=== PATIENT | female | born 1950 | race Caucasian/White ===

== ENCOUNTER 2016-11-17 16:50 | Inpatient (IN) | payer MEDICARE ==
[~2016-11-17] VITALS: Ht 165.1 cm; Wt 85.0 kg
[2016-11-19] MEDS ORDERED: VENTAER INH (10:50)
[2016-11-19] MEDS ORDERED: AMLO10TA2 PO (11:00)
[2016-11-19] MEDS ORDERED: LOSA50TA PO (11:01)
[2016-11-19] MEDS ORDERED: COUM5TAB PO (11:03)
[2016-11-19] MEDS ORDERED: TRAM50TA PO (11:03)
[2016-11-19] MEDS ORDERED: WARF-18 PO (11:03)
[2016-11-19] MEDS ORDERED: BENA25CA4 PO (11:06)
[2016-11-19] MEDS ORDERED: BIOTCAP PO (11:07)
[2016-11-26] MEDS ORDERED: PROPOFOL 200 MG/20 ML AMP IV ONE (10:08)
[2016-11-26] MEDS ORDERED: LACTATED RINGER'S 1000 ML INJ 1,000 ML IV ONE (10:08)
[2016-11-26] MEDS ORDERED: ONDANSETRON HCL 4 MG/2 ML VIAL IV PUSH ONE (10:08)
[2016-11-26] MEDS ORDERED: NORMOSOL R INJ 1,000 ML IV ONE (10:09)
[2016-11-26 12:09] VITALS: BP 136/80; PULSE 80; RESP 20; TEMP 97.9; O2SAT 96
[2016-11-26] MEDS ORDERED: ALVIMOPAN 12 MG CAPSULE ONE (12:19)
[2016-11-26] MEDS ORDERED: ceFAZolin INJ 1,000 MG VIAL ONE (12:19)
[2016-11-26] MEDS ORDERED: metroNIDAZOLE 500 MG INJ 100 ML IV ONE (12:20)
[2016-11-26] MEDS ORDERED: SODIUM CHLORIDE 0.9% INJ 100 ML ONE (12:20)
[2016-11-26 12:35] LABS: PROTHROMBIN TIME - PATIENT 11.1 SEC (9.8-11.6)
[2016-11-26] MEDS ORDERED: POVIDONE IODINE 5% (ANTISEPSIS KIT) 4 APPLICATIONS EACH NARE PRN (12:45)
[2016-11-26] MEDS ORDERED: LACTATED RINGER'S 1000 ML IV PRN (12:45)
[2016-11-26] MEDS ORDERED: DEXT 5%-NACL 0.9% 1000 ML INJ 1,000 ML IV SCH (12:45)
[2016-11-26] MEDS ORDERED: CHLORHEXIDINE GLUCONATE 2 % 1 PACK (2 CLOTHS) TOPICAL PRN (12:45)
[2016-11-26] MEDS ORDERED: ceFAZolin 1,000 MG/NS 100 ML IV SCH ×2 (12:45)
[2016-11-26] MEDS ORDERED: SODIUM CHLORID 0.9% 500 ML IV PRN (12:45)
[2016-11-26] MEDS ORDERED: ALVIMOPAN 12 MG CAPSULE - On Call PO SCH (12:45)
[2016-11-26] MEDS ORDERED: INSULIN HUMAN REGULAR 1,000 UNITS/10 ML VIAL SQ PRN (12:45)
[2016-11-26] MEDS ORDERED: METOPROLOL TARTRATE 25 MG TAB PO PRN (12:45)
[2016-11-26] MEDS ORDERED: METRONIDAZOLE 500 MG/100 ML ISONTONIC SOLN IV SCH (13:00)
[2016-11-26] MEDS ORDERED: FAMOTIDINE 20 MG/2 ML VIAL ONE (13:09)
[2016-11-26] MEDS ORDERED: DEXAMETHASONE SOD PHOS 4 MG/ML VIAL ONE (13:09)
[2016-11-26] MEDS ORDERED: ACETAMINOPHEN 1000 MG/100 ML VIAL IV ONE (13:09)
[2016-11-26] MEDS ORDERED: APREPITANT 40 MG CAP ONE (13:18)
[2016-11-26] MEDS ORDERED: SUGAMMADEX SODIUM 200 MG/2 ML VIAL IV PUSH ONE ×2 (16:02)
[2016-11-26] MEDS ORDERED: Post-op Orders (for Pharmacy) MISC XX ONE (16:30)
[2016-11-26] MEDS ORDERED: NALOXONE HCL 0.4 MG/ML AMP IV PRN (16:30)
[2016-11-26] MEDS ORDERED: SODIUM CHLORIDE 0.9% FLUSH 10 ML FLUSH IV FLUSH PRN (16:30)
[2016-11-26] MEDS ORDERED: ACETAMINOPHEN/HYDROcodone 325 MG/5 MG TAB PO PRN (16:30)
[2016-11-26] MEDS ORDERED: POTASSIUM CHLOR 20 MEQ PREMIX 100 ML IV PRN (16:30)
[2016-11-26] MEDS ORDERED: POTASSIUM CHLOR 40 MEQ PREMIX 100 ML IV PRN (16:30)
[2016-11-26] MEDS ORDERED: ZOLPIDEM TARTRATE 5 MG TAB PO PRN (16:30)
[2016-11-26] MEDS ORDERED: ENALAPRILAT 1.25 MG/ML VIAL IV PRN (16:30)
[2016-11-26] MEDS ORDERED: BENZOCAINE 6 MG/MENTHOL 10 MG LOZENGE BUCCAL PRN (16:30)
[2016-11-26] MEDS ORDERED: ONDANSETRON HCL 4 MG/2 ML VIAL IV PRN (16:30)
[2016-11-26] MEDS ORDERED: DO NOT ADM ANY ANTICOAGULANT DRUGS PRN (16:40)
[2016-11-26] MEDS ORDERED: ALBUTEROL SULFATE 90 MCG/ACT HFA 18 GM INHALER INH PRN (16:45)
[2016-11-26] MEDS ORDERED: *morphine SULFATE 8 MG/ML PERIprocedure ONLY ONE ×3 (16:45→17:25)
[2016-11-26] MEDS ORDERED: fentaNYL CITRATE 250 MCG/5 ML AMP ONE (16:47)
[2016-11-26] MEDS ORDERED: MIDAZOLAM HCL 2 MG/2 ML VIAL ONE (16:47)
[2016-11-26 17:04] LABS: AUTOMATED NEUTROPHIL # 8.6 TH/MM3 (1.8-7.7); BASOPHIL # 0.1 TH/MM3 (0-0.2); BASOPHIL % 0.6 % (0.0-2.0); EOSINOPHIL % 0.2 % (0.0-4.0); HEMATOCRIT 41.6 % (35.0-46.0); HEMO FLAGS DIFF FINAL; LYMPH % 3.1 % (9.0-44.0); LYMPHOCYTE # 0.3 TH/MM3 (1.0-4.8); MEAN CELL VOLUME 89.1 FL (80.0-100.0); MEAN CORPUSCULAR HEMOGLOBIN 30.6 PG (27.0-34.0); MEAN CORPUSCULAR HGB CONC 34.3 % (32.0-36.0); MONO % 2.4 % (0.0-8.0); NEUT % 93.7 % (16.0-70.0); PLATELET COUNT 165 TH/MM3 (150-450); RED BLOOD COUNT 4.68 MIL/MM3 (4.00-5.30); RED CELL DISTRIBUTION WIDTH 13.2 % (11.6-17.2); WHITE BLOOD COUNT 9.1 TH/MM3 (4.0-11.0)
[2016-11-26 17:21] LABS: POTASSIUM 3.9 MEQ/L (3.5-5.1)
[2016-11-26] MEDS: ceFAZolin 2 GM PREMIX 50 ML IV SCH (17:50)
[2016-11-26] MEDS: METOCLOPRAMIDE HCL 10 MG/2 ML VIAL IVS SCH (17:50)
[2016-11-26] MEDS ORDERED: *HYDROmorphone PF 1 MG VIAL PERIprocedural Use ONLY ONE (18:31)
[2016-11-26] MEDS: D5-LR + KCL 20 MEQ INJ 1,000 ML IV SCH ×2 (18:35→22:01)
[2016-11-26] MEDS: MORPHINE SULFATE 30 MG/30 ML PCA IV SCH (18:36)
[2016-11-26] MEDS: metroNIDAZOLE 500 MG INJ 100 ML IV SCH (19:19)
[2016-11-26 20:20] VITALS: BP 123/73; PULSE 76; RESP 20; TEMP 98.2
[2016-11-26 20:24] VITALS: PULSE 62
[2016-11-26 21:00] VITALS: PULSE 70
[2016-11-26] MEDS: FUROSEMIDE 20 MG/2 ML VIAL IV SCH (21:56)
[2016-11-26] MEDS: SODIUM CHLORIDE 0.9% FLUSH 10 ML FLUSH IV FLUSH SCH (21:56)
[2016-11-26 22:00] VITALS: PULSE 70
[2016-11-26] MEDS: PCA - TOTAL MG MORPHINE DELIVERED PER SHIFT SCH (22:00)
[2016-11-26 23:00] VITALS: PULSE 76
[2016-11-27] VITALS (26 sets, daily range): BP systolic 107–145; BP diastolic 57–70; PULSE 20–92; RESP 16–20; TEMP 97.6–98.8; O2SAT 92–99
[2016-11-27] MEDS: D5-LR + KCL 20 MEQ INJ 1,000 ML IV SCH ×2 (00:22→20:57)
[2016-11-27] MEDS: METOCLOPRAMIDE HCL 10 MG/2 ML VIAL IVS SCH ×4 (00:34→18:03)
[2016-11-27] MEDS: ceFAZolin 2 GM PREMIX 50 ML IV SCH ×2 (00:35→10:08)
[2016-11-27] MEDS: metroNIDAZOLE 500 MG INJ 100 ML IV SCH ×2 (04:02→11:05)
[2016-11-27] MEDS: PCA - TOTAL MG MORPHINE DELIVERED PER SHIFT SCH ×3 (05:15→22:00)
[2016-11-27 05:24] LABS: AUTOMATED NEUTROPHIL # 7.6 TH/MM3 (1.8-7.7); BASOPHIL % 0.2 % (0.0-2.0); HEMATOCRIT 41.5 % (35.0-46.0); HEMO FLAGS DIFF FINAL; LYMPH % 3.4 % (9.0-44.0); LYMPHOCYTE # 0.3 TH/MM3 (1.0-4.8); MEAN CELL VOLUME 88.9 FL (80.0-100.0); MEAN CORPUSCULAR HEMOGLOBIN 30.6 PG (27.0-34.0); MEAN CORPUSCULAR HGB CONC 34.4 % (32.0-36.0); MONO % 9.7 % (0.0-8.0); NEUT % 86.7 % (16.0-70.0); PLATELET COUNT 171 TH/MM3 (150-450); RED BLOOD COUNT 4.66 MIL/MM3 (4.00-5.30); RED CELL DISTRIBUTION WIDTH 13.2 % (11.6-17.2); WHITE BLOOD COUNT 8.8 TH/MM3 (4.0-11.0)
[2016-11-27 05:56] LABS: BICARBONATE 29.1 MEQ/L (21.0-32.0); POTASSIUM 4.7 MEQ/L (3.5-5.1)
[2016-11-27] MEDS: SODIUM CHLORIDE 0.9% FLUSH 10 ML FLUSH IV FLUSH SCH ×2 (07:59→21:01)
[2016-11-27] MEDS: FUROSEMIDE 20 MG/2 ML VIAL IV SCH ×2 (07:59→21:01)
[2016-11-27] MEDS: PANTOPRAZOLE SODIUM 40 MG VIAL IVP SCH (07:59)
[2016-11-27] MEDS: LOSARTAN 50 MG TAB PO SCH (08:00)
[2016-11-27] MEDS: ALVIMOPAN 12 MG CAPSULE PO SCH ×2 (08:00→20:58)
[2016-11-27] MEDS ORDERED: ALVIMOPAN 12 MG CAPSULE - Post-op dosing PO SCH (09:00)
[2016-11-27] MEDS: KETOROLAC TROMETHAMINE 30 MG/ML (IVP) VIAL IVP PRN ×2 (12:38→21:17)
[2016-11-27] MEDS: MORPHINE SULFATE 30 MG/30 ML PCA IV SCH (14:44)
--- NOTE | 2016-11-27 16:56 | HHI.PR ---
Subjective Remarks No complaints. Some pain. Objective Vital Signs Date Time Temp Pulse Resp B/P Pulse Ox O2 Delivery O2 Flow Rate FiO2 11/27/16 14:44 16 11/27/16 14:28 16 11/27/16 14:00 16 11/27/16 12:00 98.8 82 18 123/70 93 11/27/16 08:10 99 21 11/27/16 08:00 98.7 76 18 128/67 94 11/27/16 06:00 92 11/27/16 05:15 20 11/27/16 05:00 80 11/27/16 04:00 72 11/27/16 04:00 98.2 77 18 107/69 99 11/27/16 03:00 74 11/27/16 02:39 95 Nasal Cannula 3.00 11/27/16 02:00 70 11/27/16 01:00 74 11/27/16 00:00 97.6 20 20 145/65 96 11/27/16 00:00 70 11/26/16 23:00 76 11/26/16 22:00 70 11/26/16 22:00 20 11/26/16 21:00 70 11/26/16 20:24 62 11/26/16 20:20 98.2 76 20 123/73 11/26/16 19:00 68 16 120/69 99 Nasal Cannula 2 11/26/16 18:36 16 11/26/16 18:30 70 16 136/85 99 Nasal Cannula 2 11/26/16 18:00 70 16 135/79 99 Nasal Cannula 2 11/26/16 17:45 66 16 123/67 99 Nasal Cannula 2 11/26/16 17:30 62 16 128/73 99 Nasal Cannula 2 11/26/16 17:15 66 16 117/66 99 Nasal Cannula 2 11/26/16 17:00 64 16 117/62 99 Nasal Cannula 2 I/O 11/26/16 11/26/16 11/26/16 11/27/16 11/27/16 11/27/16 07:00 15:00 23:00 07:00 15:00 23:00 Intake Total 200 ml 2377 ml Output Total 340 ml 2290 ml Balance -140 ml 87 ml Intake Oral 240 ml IV Total 200 ml 2137 ml Output Urine Total 250 ml 2150 ml Drainage Total 90 ml 140 ml Result Diagram: 11/27/16 0455 11/27/16 0455 Objective Remarks VS-S Abd: obese. Raghu has hole cut and has pulled off colostomy appliance. I&Os-OK Labs-OK Assessment and Plan Assessment and Plan Stable POD#1 Transfer New Raghu with no hole New Colostomy appliance Remove dressings tomorrow FLD tomorrow Juan Alberto Marquez MD Nov 27, 2016 16:56
[2016-11-28] VITALS (8 sets, daily range): BP systolic 108–136; BP diastolic 60–85; PULSE 70–87; RESP 16–19; TEMP 96.8–98.4; O2SAT 90–97
[2016-11-28] MEDS: METOCLOPRAMIDE HCL 10 MG/2 ML VIAL IVS SCH ×5 (00:42→23:35)
[2016-11-28] MEDS: D5-LR + KCL 20 MEQ INJ 1,000 ML IV SCH ×2 (03:40→15:12)
[2016-11-28] MEDS: KETOROLAC TROMETHAMINE 30 MG/ML (IVP) VIAL IVP PRN ×2 (03:41→15:12)
[2016-11-28] MEDS: PCA - TOTAL MG MORPHINE DELIVERED PER SHIFT SCH ×2 (05:15→22:00)
[2016-11-28 09:08] LABS: AUTOMATED NEUTROPHIL # 7.1 TH/MM3 (1.8-7.7); BASOPHIL % 0.4 % (0.0-2.0); EOSINOPHIL # 0.1 TH/MM3 (0-0.4); EOSINOPHIL % 0.8 % (0.0-4.0); HEMATOCRIT 35.6 % (35.0-46.0); HEMO FLAGS DIFF FINAL; LYMPH % 5.2 % (9.0-44.0); LYMPHOCYTE # 0.4 TH/MM3 (1.0-4.8); MEAN CELL VOLUME 88.3 FL (80.0-100.0); MEAN CORPUSCULAR HGB CONC 35.2 % (32.0-36.0); MONO % 7.4 % (0.0-8.0); NEUT % 86.2 % (16.0-70.0); PLATELET COUNT 138 TH/MM3 (150-450); RED BLOOD COUNT 4.04 MIL/MM3 (4.00-5.30); RED CELL DISTRIBUTION WIDTH 13.4 % (11.6-17.2); WHITE BLOOD COUNT 8.2 TH/MM3 (4.0-11.0)
[2016-11-28 09:20] LABS: BICARBONATE 30.1 MEQ/L (21.0-32.0); POTASSIUM 4.1 MEQ/L (3.5-5.1)
[2016-11-28] MEDS: PANTOPRAZOLE SODIUM 40 MG VIAL IVP SCH (10:26)
[2016-11-28] MEDS: SODIUM CHLORIDE 0.9% FLUSH 10 ML FLUSH IV FLUSH SCH ×2 (10:27→20:25)
[2016-11-28] MEDS: LOSARTAN 50 MG TAB PO SCH (10:27)
[2016-11-28] MEDS: ALVIMOPAN 12 MG CAPSULE PO SCH ×2 (10:27→20:27)
[2016-11-28] MEDS: FUROSEMIDE 20 MG/2 ML VIAL IV SCH ×2 (10:27→20:27)
--- NOTE | 2016-11-28 17:20 | MP ---
cc: BRIANA MARQUEZ M.D. DATE OF SURGERY: 11/28/2016. PREOPERATIVE DIAGNOSIS: Low rectal cancer status post adjuvant radiation therapy and chemotherapy. POSTOPERATIVE DIAGNOSIS: Low rectal cancer status post adjuvant radiation therapy and chemotherapy. OPERATIVE PROCEDURE PERFORMED: Abdominal perineal resection with permanent colostomy. ANESTHESIA: General endotracheal anesthesia. SURGEON: Briana Marquez M.D. SURGICAL GARMENT ASSEMBLER: Shiva Mckenzie MD. ESTIMATED BLOOD LOSS: 200 cc. OPERATIVE FINDINGS: This patient was referred to sd with a very low rectal cancer abutting the dentate line. She underwent preoperative radiation therapy and chemotherapy and developed an ulceration at the base of the carcinoma. This ulceration was biopsied the biopsy was benign but she continued to have severe pain in the anal area. She is about 4+ months after radiation therapy and chemotherapy and there continues to be an ulceration present at the site of the lesion. For this reason, abdominal perineal resection was recommended. The patient may not have any residual carcinoma, but she continues to have pain from the nonhealing radiation ulcer and I advised abdominal perineal resection. At surgery, exploration of the abdominal cavity reveals that the liver was palpably normal as was the remainder of the colon and the small bowel. The uterus and ovaries and tubes were all intact and normal palpably. A rectosigmoid resection was done with an end colostomy in the left middle quadrant and perineal resection was done fully closing the perineum. Mobilization of the splenic flexure was done to facilitate obtaining an omental flap, which was placed in the pelvis. DESCRIPTION OF THE PROCEDURE IN DETAIL / OPERATIVE TECHNIQUE: The patient was placed on the table in supine position after adequate general endotracheal anesthesia. The legs were placed in the perineal lithotomy position and the abdomen and perineum and vagina were prepped and draped in the usual manner. A transverse infraumbilical skin incision was made and carried down through subcutaneous tissue and the rectus muscles and the peritoneum was entered with the above-mentioned findings. Our attention was turned to the sigmoid colon, which was mobilized along its peritoneal reflection. The left ureter was identified and protected at all times. Next the descending colon was mobilized along its peritoneal reflection up to the splenic flexure. Eventually the splenic flexure was mobilized and the omentum was mobilized from the transverse colon and lesser sac was entered. The superior hemorrhoidal vessels were doubly clamped, cut and doubly ligated with #0 Vicryl ligatures and the retrorectal space was entered and the lateral pelvic peritoneum was incised bilaterally and the dissection was taken down posteriorly and laterally. Eventually the dissection was taken around anteriorly and the cul-de-sac was entered posterior to the vagina and the dissection was taken down the rectum to the pelvic floor muscles. Once this was accomplished, Dr. Mckenzie went below and made an elliptical incision around the anus up into the ischiorectal fossa and then incised the levator muscles widely and entered the pelvis posteriorly and carried the dissection around laterally around the levators. The anterior area was dissected free and the sigmoid colon was divided with an Ethicon ZULEIMA 55 stapling device and the remainder of the sigmoid mesentery was clamped, cut and ligated and the specimen was passed out from above downward to the perineum. Dr. Mckenzie then closed the perineum with interrupted #0 Vicryl sutures for the subcutaneous tissue and then the skin was closed with simple running #2-0 subcuticular Vicryl sutures. The pelvis had been previously irrigated with saline solution and hemostasis at the previously obtained by Dr. Mckenzie. There was a large redundant and remaining loop of sigmoid colon which was divided with the ZULEIMA stapling device and the remainder of that mesentery was clamped, cut and ligated and that specimen was also removed. The end of the colon was then cleared of a generous amount of appendiceal epiploica and fatty tissue and a stoma site was made in the left middle quadrant in the midportion of the rectus muscle by taking out a disk of skin and subcutaneous tissue incising the anterior rectus sheath longitudinally, splitting the muscle and then incising the posterior rectus sheath as well. The colon was brought out through the stoma site easily. The omentum which had been previously mobilized was taken down the left colic gutter and placed in the pelvis posterior to the uterus and the uterus was allowed to fall back and totally obliterate the pelvis. A drain was placed in the pelvis and brought out through a separate stab wound in the right lower quadrant. The abdominal cavity was checked for hemostasis and hemostasis was obtained with electrocautery and ligature and the abdominal cavity was irrigated thoroughly with a couple of liters of saline solution and aspirated dry. The bowels were replaced in the abdominal cavity in an business process manager manner and then the abdominal cavity was closed in layers using a double-stranded #1 PDS for the posterior rectus sheath, irrigating the rectus muscle layer with a liter of saline solution and aspirating dry and then closing the anterior rectus sheath with a double-stranded #1 PDS as well. The subcutaneous tissue was irrigated thoroughly with saline solution using a liter. The subcutaneous tissue was aspirated dry and then the skin was closed with running 3-0 Vicryl subcuticular suture and dressings were applied. The colostomy was matured with interrupted 3-0 Vicryl sutures and a 57-mm appliance was placed. Sponge, needle instrument counts were reported as correct. The estimated blood loss was 200 mL. The patient tolerated the procedure well and left the operating room in good condition. MD ESPERANZA Sheridan/COCO /9:18 PM /5:08 PM
[2016-11-28] MEDS: MORPHINE SULFATE 30 MG/30 ML PCA IV SCH (18:54)
[2016-11-29] VITALS (7 sets, daily range): BP systolic 107–134; BP diastolic 63–78; PULSE 72–80; RESP 16–17; TEMP 96.2–97.8; O2SAT 93–98
[2016-11-29] MEDS: METOCLOPRAMIDE HCL 10 MG/2 ML VIAL IVS SCH ×4 (05:28→23:06)
[2016-11-29] MEDS: D5-LR + KCL 20 MEQ INJ 1,000 ML IV SCH ×2 (05:28→16:04)
[2016-11-29] MEDS: PCA - TOTAL MG MORPHINE DELIVERED PER SHIFT SCH ×3 (06:00→22:00)
[2016-11-29] MEDS: KETOROLAC TROMETHAMINE 30 MG/ML (IVP) VIAL IVP PRN ×3 (08:33→16:04)
[2016-11-29] MEDS: ALVIMOPAN 12 MG CAPSULE PO SCH ×2 (08:34→19:41)
[2016-11-29] MEDS: PANTOPRAZOLE SODIUM 40 MG VIAL IVP SCH (08:34)
[2016-11-29] MEDS: FUROSEMIDE 20 MG/2 ML VIAL IV SCH (08:34)
[2016-11-29] MEDS: LOSARTAN 50 MG TAB PO SCH (08:34)
[2016-11-29] MEDS: SODIUM CHLORIDE 0.9% FLUSH 10 ML FLUSH IV FLUSH SCH ×2 (09:00→19:39)
--- NOTE | 2016-11-29 10:20 | RADRPT ---
EXAM DATE/TIME: 11/29/2016 09:57 [facility] COMPARISON: No previous studies available for comparison. INDICATIONS : Evaluate for ileus, post operative MEDICAL HISTORY : None. SURGICAL HISTORY : abdominal ENCOUNTER: Initial ACUITY: 1 day PAIN SCORE: 8/10 LOCATION: Bilateral abdomen FINDINGS: There are slightly distended loops of small bowel with maximum diameter of 3.9 cm with gas present th roughout the colon down to the rectum. There is evidence for prior cholecystectomy. There appears to be a YOHANNES bulb overlapping the lower pelvis. No definite free air is identified for technique. CONCLUSION: Probable ileus. Nica Suarez MD on November 29, 2016 at 10:18 Board Certified Radiologist. This report was verified electronically.
[2016-11-30] MEDS: D5-LR + KCL 20 MEQ INJ 1,000 ML IV SCH ×2 (04:06→20:44)
[2016-11-30 04:13] VITALS: BP 126/63; PULSE 64; RESP 17; TEMP 97.8; O2SAT 92
[2016-11-30] MEDS: METOCLOPRAMIDE HCL 10 MG/2 ML VIAL IVS SCH ×3 (05:59→18:07)
[2016-11-30] MEDS: PCA - TOTAL MG MORPHINE DELIVERED PER SHIFT SCH (06:00)
[2016-11-30] MEDS: MORPHINE SULFATE 30 MG/30 ML PCA IV SCH (06:42)
--- NOTE | 2016-11-30 07:33 | HHI.PR ---
Subjective Remarks No N or V. Minimal N/G output. 150cc on insertion. Mainly c/o back pain. Incision not really painful. Stooling Objective Vital Signs Date Time Temp Pulse Resp B/P Pulse Ox O2 Delivery O2 Flow Rate FiO2 11/30/16 06:42 16 11/30/16 06:00 17 11/30/16 04:13 97.8 64 17 126/63 92 11/30/16 00:06 17 11/29/16 23:43 96.2 73 17 132/78 93 11/29/16 22:00 17 11/29/16 20:17 96.9 72 17 111/64 95 11/29/16 16:00 97.8 77 17 134/75 93 11/29/16 14:00 18 11/29/16 12:00 97.1 80 17 107/63 98 11/29/16 08:00 96.8 77 16 118/68 95 I/O 11/29/16 11/29/16 11/29/16 11/30/16 11/30/16 11/30/16 07:00 15:00 23:00 07:00 15:00 23:00 Intake Total 951 ml 759 ml 344 ml 968 ml Output Total 50 ml 10 ml 170 ml 310 ml Balance 901 ml 749 ml 174 ml 658 ml Intake Oral 240 ml 0 ml IV Total 711 ml 759 ml 344 ml 968 ml Gastric Drainage Total 150 ml 250 ml Drainage Total 50 ml 10 ml 20 ml 60 ml # Voids 3 4 3 2 # Bowel Movements 0 Result Diagram: 11/28/1682011/28/1621 Objective Remarks VS-S Abd: Obese, soft, stoma pink and working. 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 Possible D/C tomorrow. Needs [facility] for colostomy teaching Juan Alberto Marquez MD Nov 30, 2016 07:33
[2016-11-30 08:00] VITALS: BP 118/68; PULSE 76; RESP 16; TEMP 96.5; O2SAT 94
[2016-11-30] MEDS: PANTOPRAZOLE SODIUM 40 MG VIAL IVP SCH (08:32)
[2016-11-30] MEDS: LOSARTAN 50 MG TAB PO SCH (08:33)
[2016-11-30] MEDS: ALVIMOPAN 12 MG CAPSULE PO SCH ×2 (08:33→21:21)
[2016-11-30] MEDS: SODIUM CHLORIDE 0.9% FLUSH 10 ML FLUSH IV FLUSH SCH ×2 (08:34→21:00)
[2016-11-30 12:00] VITALS: BP 145/67; PULSE 81; RESP 16; TEMP 96; O2SAT 97
[2016-11-30] MEDS: ACETAMINOPHEN/HYDROcodone 325 MG/5 MG TAB PO PRN ×2 (15:46→21:22)
[2016-11-30 16:00] VITALS: BP 130/65; PULSE 73; RESP 16; TEMP 96.4; O2SAT 95
[2016-11-30 20:00] VITALS: BP 109/65; PULSE 80; RESP 20; TEMP 97.5; O2SAT 95
[2016-12-01] VITALS: BP 117/67; PULSE 72; RESP 20; TEMP 97.9; O2SAT 94
[2016-12-01] MEDS: METOCLOPRAMIDE HCL 10 MG/2 ML VIAL IVS SCH ×4 (00:03→17:32)
[2016-12-01 08:00] VITALS: BP 135/80; PULSE 74; RESP 18; TEMP 97.2; O2SAT 96
[2016-12-01] MEDS: PANTOPRAZOLE SODIUM 40 MG VIAL IVP SCH (08:31)
[2016-12-01] MEDS: ALVIMOPAN 12 MG CAPSULE PO SCH ×2 (08:31→22:00)
[2016-12-01] MEDS: LOSARTAN 50 MG TAB PO SCH (08:31)
[2016-12-01] MEDS: SODIUM CHLORIDE 0.9% FLUSH 10 ML FLUSH IV FLUSH SCH ×2 (08:31→22:00)
[2016-12-01] MEDS: ACETAMINOPHEN/HYDROcodone 325 MG/5 MG TAB PO PRN ×2 (08:35→18:48)
[2016-12-01 12:00] VITALS: BP 126/71; PULSE 73; RESP 17; TEMP 96.4; O2SAT 96
--- NOTE | 2016-12-01 13:58 | HHI.FF ---
Face to Face Verification Diagnosis: (1) Cancer of rectum (2) Colostomy status Home Health Nursing Order: Medical education Signs/symptoms of disease process Wound care and dressing changes Nursing assessment with vital signs Instructions: Colostomy teaching and supplies I have seen patient Lexi Jordan on 12/01/16. My clinical findings support the need for the requested home health care services because: Ltd mobility - disease progression Deconditioned w/ increased weakness Med compliance is questionable Limited ability to care for self Need for psychosocial assistance High risk of falls I certify that my clinical findings support that this patient is homebound because: Post-op weakness Impaired cognitive ability/safety Unsteady gait/balance Unsafe to leave home unassisted Need for psychosocial assistance [id number] bed/chair Juan Alberto Marquez MD Dec 01, 2016 13:58
[2016-12-01 16:00] VITALS: BP 127/76; PULSE 88; RESP 17; TEMP 97.9; O2SAT 98
[2016-12-01] MEDS: D5-LR + KCL 20 MEQ INJ 1,000 ML IV SCH (17:33)
--- NOTE | 2016-12-01 18:33 | HHI.PR ---
Subjective Remarks No N or V. Mainly c/o back pain. Incision not really painful. Stooling. Tolerating PO Objective Vital Signs Date Time Temp Pulse Resp B/P Pulse Ox O2 Delivery O2 Flow Rate FiO2 12/01/16 16:00 97.9 88 17 127/76 98 12/01/16 12:00 96.4 73 17 126/71 96 12/01/16 08:00 97.2 74 18 135/80 96 12/01/16 00:00 97.9 72 20 117/67 94 11/30/16 20:00 97.5 80 20 109/65 95 I/O 11/30/16 11/30/16 11/30/16 12/01/16 12/01/16 12/01/16 07:00 15:00 23:00 07:00 15:00 23:00 Intake Total 968 ml 856 ml 270 ml 992 ml 340 ml Output Total 310 ml 280 ml 140 ml 600 ml 480 ml Balance 658 ml 576 ml 270 ml 852 ml -260 ml -480 ml Intake Oral 240 ml 240 ml 240 ml 340 ml IV Total 968 ml 616 ml 30 ml 752 ml Output Urine Total 500 ml 400 ml Stool Total 250 ml 50 ml Gastric Drainage Total 250 ml Drainage Total 60 ml 30 ml 90 ml 100 ml 80 ml # Voids 2 3 2 2 # Bowel Movements 0 0 Result Diagram: 11/28/1682011/28/1621 Objective Remarks VS-S Abd: Obese, soft, stoma pink and working. I&Os-OK Labs- not done will check with RNs Assessment and Plan Assessment and Plan Stable POD#7 Plan: Still not seen by ET nursing. Consult placed 11/26/16. D/C tomorrow. Needs [facility] for colostomy teaching Juan Alberto Marquez MD Dec 01, 2016 18:33
[2016-12-01 19:29] LABS: AUTOMATED NEUTROPHIL # 4.2 TH/MM3 (1.8-7.7); BASOPHIL % 0.4 % (0.0-2.0); EOSINOPHIL # 0.2 TH/MM3 (0-0.4); EOSINOPHIL % 4.3 % (0.0-4.0); HEMATOCRIT 38.7 % (35.0-46.0); HEMO FLAGS DIFF FINAL; LYMPH % 7.4 % (9.0-44.0); LYMPHOCYTE # 0.4 TH/MM3 (1.0-4.8); MEAN CELL VOLUME 89.7 FL (80.0-100.0); MEAN CORPUSCULAR HEMOGLOBIN 30.5 PG (27.0-34.0); MONO % 10.5 % (0.0-8.0); NEUT % 77.4 % (16.0-70.0); PLATELET COUNT 184 TH/MM3 (150-450); RED BLOOD COUNT 4.31 MIL/MM3 (4.00-5.30); RED CELL DISTRIBUTION WIDTH 13.5 % (11.6-17.2); WHITE BLOOD COUNT 5.4 TH/MM3 (4.0-11.0)
[2016-12-01 19:51] LABS: BICARBONATE 26.5 MEQ/L (21.0-32.0)
[2016-12-01 20:00] VITALS: BP 145/76; PULSE 84; RESP 20; TEMP 97.9; O2SAT 96
[2016-12-02] VITALS: BP 117/70; PULSE 72; RESP 20; TEMP 97.9; O2SAT 95
[2016-12-02] MEDS: ACETAMINOPHEN/HYDROcodone 325 MG/5 MG TAB PO PRN ×2 (00:33→12:24)
[2016-12-02] MEDS: METOCLOPRAMIDE HCL 10 MG/2 ML VIAL IVS SCH ×2 (05:51)
[2016-12-02 08:00] VITALS: BP 110/67; PULSE 68; RESP 16; TEMP 97.7; O2SAT 96
[2016-12-02] MEDS: ALVIMOPAN 12 MG CAPSULE PO SCH (08:43)
[2016-12-02] MEDS: LOSARTAN 50 MG TAB PO SCH (08:43)
[2016-12-02] MEDS: PANTOPRAZOLE SODIUM 40 MG VIAL IVP SCH (08:43)
[2016-12-02] MEDS: SODIUM CHLORIDE 0.9% FLUSH 10 ML FLUSH IV FLUSH SCH (08:49)
[2016-12-02] MEDS ORDERED: HYDR-3516 PO (09:23)
--- NOTE | 2016-12-02 10:34 | PD.WCN.NOT ---
Wound Consult Description: Re-Consult for NEW OSTOMY TEACHING of LLQ per Dr Marquez Communicated with: Patient and her son Magali,NADINE Renetta Downing, Case Management Recommendation: Follow up with [facility] nurse Additional Information: Education given to patient regarding end colostomy Ostomy Type: Colostomy, Other (Left Lower Quadrant End Stoma ) Surgeon: Juan Alberto Marquez MD Date of Surgery: Nov 26, 2016 Complete: Starter kit, Education materials, Other [facility] Educated patient on: Education given to patient regarding colostomy appliances, removal of appliance , wear time, output, stoma shape and size, general anatomy, wafer application, skin care, emptying pouch, signs and symptoms of infection. Additional information Patient seen on for Ostomy teaching with patient son at bedside. Spoke with patient regarding the removal of the appliance, size and type of stoma, connecting wafer to pouch, opening and closing pouch, and skin care all before emptying and removing the pouch. Patient states understanding and requested that we go into restroom and she stand for demonstration. Once in bathroom, patient removed abdominal binder from around abdomen noted with hernia. Patient looked at her appliance with mirror. She was able to see better with mirror due to placement of colostomy. There was brown liquid effluent noted to pouch with minimal sanguinous color mixed in. Patient was able to demonstrate opening and closing of pouch. Wafer was removed by patient and sba underwriter using adhesive remover. Stoma and peristomal skin was observed by both patient and sba underwriter. End stoma was moderately protruding and functioning with + flatus and located in the left lower quadrant. Stoma measures 1 & 1/4 inches with a minimally edematous round red moist bud with lumen in center of stoma. Mucocutaneous junction is noted with minimal yellow adherent tissue from 12 o'clock to 2o' clock and unremarkable from 2-12 o'clock. Patient asked when it was going to get better. She clarified further by saying "When will I not be sick when looking at it" referring to stoma "I just got nauseous". She became more comfortable once she spoke about other normal body functions and after acknowledging her concerns with further discussion she became more accepting of her stoma and might have even named it. The peristomal area was cleansed with a water moistened washcloth and allowed to dry while prepping flange and wafer for application. Once skin was dry the wafer was applied by sba underwriter with patient watching. Light pressure was applied with hand placed over stoma for approximately 1 minute. The barrier obtained a good seal and the patient applied the pouch independently and then closed the end pouch to prevent leaking of effluent from bottom of appliance. 4 Ostomy appliances were obtained from [facility] on 7 for size 1 &3/4 as the ones ordered were not the correct size and shape. Teaching booklet from [employer] kit was seen by patient who began reading it prior to discharge. All questions were answered at this time and patient stated she was ready for discharge. Sunshine Houser Dec 02, 2016 10:34 Sunshine Houser Dec 02, 2016 10:34
[2016-12-02 12:00] VITALS: BP 114/65; PULSE 74; RESP 16; TEMP 96.5; O2SAT 95
== END 2016-12-02 13:09 | disposition home health service (06) | DRG 331 ==
LOC: HSDI 11-26 11:20 → HCIS 11-26 19:58 → N07A 11-28 02:44
PROVIDERS: ADMIT Colon & Rectal Surgery; ATTEND Colon & Rectal Surgery
PROC: 0DBN0ZZ Excision of Sigmoid Colon, Open Approach (ICD-10-PCS; 2016-11-26)
PROC: 0D1N0Z4 Bypass Sigmoid Colon to Cutaneous, Open Approach (ICD-10-PCS; 2016-11-26)
PROC: 0DTP0ZZ Resection of Rectum, Open Approach (ICD-10-PCS; principal; 2016-11-26 13:44)
DX: C20 Malignant neoplasm of rectum (principal); E66.9 Obesity, unspecified; I10 Essential (primary) hypertension; Z87.891 Personal history of nicotine dependence; Z92.21 Personal history of antineoplastic chemotherapy; Z92.3 Personal history of irradiation; Z68.31 Body mass index [BMI] 31.0-31.9, adult; F32.9 Major depressive disorder, single episode, unspecified; Z86.718 Personal history of other venous thrombosis and embolism
CPT/HCPCS: 74020; 80048; 82948; 85025; 85610; 86850; 86900; 86901; 88309; 94150; C9113; J0131; J0690; J1100; J1170; J1885; J1940; J2250; J2270; J2405; J2765; J3010; J3480; J7120; J8501

== ENCOUNTER → 2016-11-19 | Outpatient (CLI) | payer MEDICARE ==
[~2016-11-19] MED LIST: AMLO10 PO; AMLO10TA2 PO; BENA25CA4 PO; BIOTCAP PO; COUM5TAB PO; KETO10 PO; LORT7.5T3 PO; LOSA50TA PO; TRAM50TA PO; VENTAER INH; WARF-18 PO
[2016-11-19 10:47] LABS: AUTOMATED NEUTROPHIL # 3.1 TH/MM3 (1.8-7.7); BASOPHIL % 0.4 % (0.0-2.0); EOSINOPHIL # 0.1 TH/MM3 (0-0.4); EOSINOPHIL % 2.2 % (0.0-4.0); HEMATOCRIT 46.7 % (35.0-46.0); HEMO FLAGS DIFF FINAL; LYMPH % 11.8 % (9.0-44.0); LYMPHOCYTE # 0.5 TH/MM3 (1.0-4.8); MEAN CELL VOLUME 88.4 FL (80.0-100.0); MEAN CORPUSCULAR HEMOGLOBIN 29.5 PG (27.0-34.0); MEAN CORPUSCULAR HGB CONC 33.3 % (32.0-36.0); NEUT % 75.6 % (16.0-70.0); PLATELET COUNT 148 TH/MM3 (150-450); RED BLOOD COUNT 5.28 MIL/MM3 (4.00-5.30); RED CELL DISTRIBUTION WIDTH 13.1 % (11.6-17.2); WHITE BLOOD COUNT 4.2 TH/MM3 (4.0-11.0)
[2016-11-19 11:00] LABS: APTT (PATIENT) 33.9 SEC (24.3-30.1); INTERNATIONAL NORMALIZED RATIO 1.8 RATIO; PROTHROMBIN TIME - PATIENT 20.2 SEC (9.8-11.6)
[2016-11-19 11:11] LABS: BLOOD, URINE NEG (NEG); COMMENT (UR) CULT NOT INDICATED; CULTURE IF INDICATED CULT NOT INDICATED; GLUCOSE,URINE NEG (NEG); KETONE, URINE NEG (NEG); NITRITE,URINE NEG (NEG); SQUAMOUS EPITHELIAL CELL URINE 1 /hpf (0-5); URINE COLOR YELLOW (YELLW/STRAW)
[2016-11-19 11:18] LABS: ALT (GPT) 25 U/L (10-53); ANION GAP 6 MEQ/L (5-15); AST (GOT) 21 U/L (15-37); BICARBONATE 28.3 MEQ/L (21.0-32.0); BLOOD UREA NITROGEN 10 MG/DL (7-18); CHLORIDE 109 MEQ/L (98-107); GLOMERULAR FILTRATION RATE 113 ML/MIN (>89); GLUCOSE,FASTING 87 MG/DL (74-99); POTASSIUM 4.1 MEQ/L (3.5-5.1); SODIUM (NA) 143 MEQ/L (136-145)
[2016-11-19 11:20] LABS: ALKALINE PHOSPHATASE 152 U/L (45-117); TOTAL BILIRUBIN ADULT 0.5 MG/DL (0.2-1.0)
--- NOTE | 2016-11-19 13:03 | RADRPT ---
EXAM DATE/TIME: 11/19/2016 12:30 [facility] COMPARISON: No previous studies available for comparison. INDICATIONS : Evalaute pneumonia, pneumothorax and communicable disease. Pre op colostomy. MEDICAL HISTORY : None. SURGICAL HISTORY : None. ENCOUNTER: Initial ACUITY: 1 day PAIN SCORE: 0/10 LOCATION: chest FINDINGS: The heart is normal in size. The lungs demonstrate chronic interstitial changes but are otherwise rupa ar. The visualized bony structures demonstrate degenerative changes in thoracic spine but are intact. CONCLUSION: 1. Chronic appearing interstitial changes. No acute abnormality is identified. Jose David Whitney MD on November 19, 2016 at 12:36 Board Certified Radiologist. This report was verified electronically.
--- NOTE | 2016-11-21 11:17 | EKG ---
Date Performed: 11/19/2016 Time Performed: 10:39:16 PTAGE: 66 years EKG: Sinus rhythm NORMAL ECG NO PREVIOUS TRACING DOCTOR: John Drake Interpretating Date/Time 11/21/2016 11:08:01
== END ==
LOC: CPRE 10:00
PROVIDERS: ATTEND Colon & Rectal Surgery
DX: Z01.810 Encounter for preprocedural cardiovascular examination (principal); Z01.811 Encounter for preprocedural respiratory examination; Z01.812 Encounter for preprocedural laboratory examination; Z79.01 Long term (current) use of anticoagulants; C20 Malignant neoplasm of rectum
CPT/HCPCS: 36415; 71020; 80053; 81001; 85025; 85610; 85730; 93005

== ENCOUNTER 2017-01-05 06:03 | Day surgery (SDC) | payer MEDICARE ==
[~2017-01-05] VITALS: Ht 165.1 cm; Wt 82.7 kg
[~2017-01-05 06:03] MED LIST changes: -AMLO10 PO; +HYDR-3516 PO; -KETO10 PO; -LORT7.5T3 PO; -TRAM50TA PO
[2017-01-05 06:41] VITALS: BP 153/94; PULSE 80; RESP 18; TEMP 98.1; O2SAT 95
[2017-01-05] MEDS ORDERED: POVIDONE IODINE 5% (ANTISEPSIS KIT) 4 APPLICATIONS EACH NARE SCH (06:45)
[2017-01-05] MEDS ORDERED: VANCOMYCIN 1000 MG/NS 250 ML - implanted port/tunneled catheter IV SCH ×2 (06:45)
[2017-01-05] MEDS ORDERED: CHLORHEXIDINE GLUCONATE 2 % 1 PACK (2 CLOTHS) TOPICAL SCH (06:45)
[2017-01-05] MEDS ORDERED: SODIUM CHLORIDE 0.9% 1000 ML IV SCH (06:45)
[2017-01-05 07:16] LABS: AUTOMATED NEUTROPHIL # 4.1 TH/MM3 (1.8-7.7); BASOPHIL % 0.5 % (0.0-2.0); EOSINOPHIL # 0.2 TH/MM3 (0-0.4); EOSINOPHIL % 4.5 % (0.0-4.0); HEMATOCRIT 45.6 % (35.0-46.0); HEMO FLAGS DIFF FINAL; LYMPH % 9.3 % (9.0-44.0); LYMPHOCYTE # 0.5 TH/MM3 (1.0-4.8); MEAN CELL VOLUME 90.1 FL (80.0-100.0); MEAN CORPUSCULAR HEMOGLOBIN 29.6 PG (27.0-34.0); MEAN CORPUSCULAR HGB CONC 32.8 % (32.0-36.0); MONO % 8.8 % (0.0-8.0); NEUT % 76.9 % (16.0-70.0); PLATELET COUNT 177 TH/MM3 (150-450); RED BLOOD COUNT 5.06 MIL/MM3 (4.00-5.30); RED CELL DISTRIBUTION WIDTH 14.5 % (11.6-17.2); WHITE BLOOD COUNT 5.4 TH/MM3 (4.0-11.0)
[2017-01-05 07:28] LABS: APTT (PATIENT) 26.1 SEC (24.3-30.1); PROTHROMBIN TIME - PATIENT 10.7 SEC (9.8-11.6)
[2017-01-05] MEDS ORDERED: MIDAZOLAM HCL 2 MG/2 ML VIAL ONE ×2 (07:43→08:03)
[2017-01-05] MEDS ORDERED: fentaNYL CITRATE 250 MCG/5 ML AMP ONE (07:43)
[2017-01-05] MEDS ORDERED: LIDOCAINE 1%/EPINEPHrine 1:200,000 PF SOLN 30 ML VIAL ONE (07:56)
[2017-01-05 08:45] VITALS: BP 117/63; PULSE 75; RESP 18; TEMP 97.6; O2SAT 96
[2017-01-05] MEDS ORDERED: SODIUM CHLORIDE 0.9% FLUSH 10 ML FLUSH IVF PRN (08:45)
--- NOTE | 2017-01-05 08:45 | PD.RAD ---
Post Procedure Progress Note Pre Procedure Diagnosis: (1) Cancer of rectum Post Procedure Diagnosis: (1) Cancer of rectum Procedure Date: Jan 05, 2017 Supervising Radiologist: Shiva Krishnan Anesthesia: Conscious Sedation Plan of Activity Patient to Unit: [facility] See PACS Report for procedural detail/treatment Central Venous Access Device Procedure 1 Right Internal Jugular Infusaport Placement single lumen Shiva Krishnan MD Jan 05, 2017 08:45
[2017-01-05 09:00] VITALS: BP 108/60; PULSE 67; RESP 16; O2SAT 97
[2017-01-05 09:30] VITALS: BP 105/67; PULSE 62; RESP 18; O2SAT 98
[2017-01-05 10:00] VITALS: BP 109/64; PULSE 66; RESP 18; O2SAT 98
[2017-01-05 10:30] VITALS: BP 131/78; PULSE 60; RESP 16; O2SAT 98
--- NOTE | 2017-01-05 11:27 | RADRPT ---
EXAM DATE/TIME: 01/05/2017 07:35 [facility] COMPARISON: No previous studies available for comparison. INDICATIONS : Patient with history of rectal adenocarcinoma in need of [id number]-[id number] placement. MEDICAL HISTORY : HTN, DDD, Bilateral lower extremity DVT, Anemia, Headache, Arthritis, Chemo and radiation treatment SURGICAL HISTORY : Cholecystectomy, Hernia repair with mesh, Right total knee replacement ENCOUNTER: Initial ACUITY: 7-11 months PAIN SCORE: 0/10 FLUORO TIME: 0.2 minutes IMAGE SERIES: 1 SEDATION TIME: 30 minutes ACCESS: Right internal jugular vein SEDATION: 1.) 3.5 mg midazolam (Versed) IV 2.) 225 mcg fentanyl (Sublimaze) IV Prophylactic antibiotics were administered with appropriate pre-procedure timing. Vancomycin within 2 hours of procedure, Ancef (or alternative) within 1 hour of procedure. DEVICE: 1. 8 Gu[place]ese single lumen Smart port with vortex PROCEDURE : 1. Continuous pulse oximetry and EKG monitoring. 2. Intravenous conscious sedation. 3. Ultrasound guidance for venous access. 4. Fluoroscopic guided implantable central venous port placement. The patient was placed supine. The neck was prepped in sterile fashion. Full sterile technique was u sed, including cap, mask, sterile gloves and gown, and a large sterile sheet. Hand hygiene and 2% ch lorhexidine Betadine was utilized per protocol for cutaneous antisepsis with appropriate dry time for site. The skin and subcutaneous tissues were infiltrated with local anesthetic solution. Sterile g el and sterile probe cover were utilized for ultrasound guidance. Under direct ultrasound guidance, central venous access was accomplished in the targeted vessel. The ultrasound images depicting access guidance were stored and saved to PACS for permanent record. A s ubcutaneous pocket was created using blunt dissection. The port was introduced to the pocket. The c atheter tubing was fed through a subcutaneous tunnel to the venotomy site. The catheter tubing was c ut to a suitable length and then was introduced through a valved Peel-Away sheath and positioned with catheter tubing tip at the cavo-atrial junction level. The pocket incision was closed with subcutic ular Vicryl suture. Steri-Strips were applied. The port was flushed and locked with heparin solutio n per protocol. Sterile dressing was applied to the site. The patient tolerated the procedure well. Conscious sedation was performed with the prescribed dosages and duration as above in the presence of an independent trained radiology nurse to assist in the monitoring of the patient. EKG and oximetry remained stable throughout the procedure. The patient tolerated the procedure well and there were no complications. The patient was sent to post anesthesia recovery in stable condition. CONCLUSION: Uncomplicated ultrasound and fluoroscopic guided implanted central venous port catheter placement as described in detail above. An 8 Guyanese Power port was placed. Shiva Krishnan MD on January 05, 2017 at 11:25 Board Certified Radiologist. This report was verified electronically.
== END 2017-01-05 11:00 | disposition home or self-care (01) ==
LOC: HROP 06:03 → HRIP 06:04 → HROP 11:00
PROVIDERS: ATTEND Internal Medicine Hematology & Oncology
DX: C20 Malignant neoplasm of rectum (principal); I10 Essential (primary) hypertension; D64.9 Anemia, unspecified; R51 Headache; M19.90 Unspecified osteoarthritis, unspecified site; Z86.718 Personal history of other venous thrombosis and embolism; Z96.651 Presence of right artificial knee joint; Z79.01 Long term (current) use of anticoagulants; Z79.899 Other long term (current) drug therapy
CPT/HCPCS: 36561; 76937; 77001; 85025; 85610; 85730; 99152; 99153; C1788; J1642; J2250; J3010; J3370; J7030; J7050